=== PATIENT | male | born 1985 | race African-American/Black ===

== ENCOUNTER 2023-11-13 09:01 | Emergency (ER) | payer SELFPAY ==
[~2023-11-13] VITALS: Ht 188 cm; Wt 100.0 kg
[2023-11-13 09:05] VITALS: O2SAT 96
[2023-11-13 10:59] LABS: BASOPHILS % 0.5 % (0.0-2.0); EOSINOPHILS % 0.8 % (0.0-5.0); HEMATOCRIT. 40.2 % (42.0-52.0); HEMOGLOBIN. 13.4 g/dL (14.0-18.0); LYMPHOCYTES % 7.5 % (20.0-50.0); MEAN CORPUSCULAR HEMOGLOBIN 27.7 pg (28.0-32.0); MEAN CORPUSCULAR HGB CONC 33.4 g/dL (31.0-37.0); MEAN CORPUSCULAR VOLUME 83.1 fL (80.0-94.0); MEAN PLATELET VOLUME 9.3 fl (7.4-10.4); MONOCYTES % 5.2 % (2.0-8.0); PLATELET 291 x1000/uL (130-400); RED BLOOD CELL COUNT 4.84 mill/uL (4.7-6.1); RED CELL DISTRIBUTION WIDTH 13.6 % (11.6-14.6); WHITE BLOOD COUNT 16.3 x1000/uL (4.5-11.0)
[2023-11-13 11:08] LABS: CHLORIDE 109 mEq/L (98-107); POTASSIUM 4.1 mEq/L (3.5-5.1); SODIUM 143 mEq/L (136-145)
[2023-11-13 11:09] LABS: CALCIUM 10.1 mg/dL (8.7-10.4); CARBON DIOXIDE 25 mEq/L (21-32)
[2023-11-13 11:10] VITALS: BP 122/71; PULSE 104; RESP 16; TEMP 37.00296; O2SAT 96
[2023-11-13 11:14] LABS: GLUCOSE 114 mg/dL (70-105); UREA NITROGEN BLOOD 10 mg/dL (9-23)
[2023-11-13 11:16] LABS: ACETAMINOPHEN < 2 ug/mL (10-30); AMMONIA < 17 uMol/L (<32)
[2023-11-13 11:18] LABS: ETHANOL BLOOD < 10 mg/dL (<10)
== END 2023-11-13 12:46 | disposition home or self-care (01) ==
LOC: ER 09:14
DX: F29 Unspecified psychosis not due to a substance or known physiological condition (principal); R45.1 Restlessness and agitation
CPT/HCPCS: 80048; 80307; 80329; 80320; 82140; 85025; 36415; 99283; Z7610; G0480